=== PATIENT | female | born 1960 | race Caucasian/White ===

== ENCOUNTER 2024-06-07 09:57 | Outpatient (CLI) | payer BC, SELFPAY ==
--- NOTE | 2024-06-07 10:15 | CRLHL7_ITS ---
For Patients: As a result of the Century Cures Act, medical imaging exams and procedure reports are released immediately into your electronic medical record. You may view this report before your referring provider. If you have questions, please contact your health care provider. Indication: Stenosis. Technique: Multiplanar, multisequence MRI of the lumbar spine was performed without intravenous contrast. Comparison: Lumbar spine radiographs 06/03/2024. Findings: There are 5 lumbar type vertebral segments identified. The vertebral body heights are maintained without evidence of fracture. There is no discrete T1 hypointense marrow infiltrating process. Susceptibility artifact within the posterior paraspinal soft tissues related to spinal cord stimulator generator. The conus medullaris terminates at L1, normal. Cauda equina appears unremarkable. T12-L1: No spinal canal or neural foraminal stenosis. L1-2: No spinal canal or neural foraminal stenosis. L2-3: Disc degeneration. Disc bulge combined with facet arthropathy resulting in mild spinal canal narrowing. Mild neural foraminal narrowing. Moderate facet arthropathy. L3-4: Disc degeneration. Disc bulge combined with facet arthropathy resulting in moderate left lateral recess narrowing with mild overall spinal canal narrowing. Encroachment upon the descending left L4 nerves. Mild to moderate left and mild right neural foraminal narrowing. L4-5: Disc degeneration. Disc bulge with shallow right subarticular disc protrusion which abuts the descending right L5 nerves. Mild overall spinal canal narrowing. Moderate left and mild right neural foraminal narrowing secondary to disc bulge and facet arthropathy. L5-S1: Disc degeneration. Minimal spinal canal narrowing. Moderate left and mild right neural foraminal narrowing. Moderate facet arthropathy. Mild sacroiliac joint osteoarthritis. Small right renal cyst. Impression: 1. At L3-4, moderate left lateral recess narrowing with encroachment upon the descending left L4 nerves. Mild to moderate left neural foraminal narrowing. 2. At L4-5, shallow right subarticular disc protrusion encroaches upon the descending right L5 nerves. Moderate left neural foraminal narrowing. 3. At L5-S1, moderate left neural foraminal narrowing. 4. [id number] multilevel facet arthropathy. Dictated by Kennedy Sexton MD @ 06/10/2024 11:37:33 AM (Electronically Signed)
== END 2024-06-07 09:58 | disposition home or self-care (01) ==
LOC: MRI 10:01
PROVIDERS: PCP Family Medicine; Visit Provider Orthopaedic Surgery Orthopaedic Surgery of the Spine
DX: M48.062 Spinal stenosis, lumbar region with neurogenic claudication (principal); M51.26 Other intervertebral disc displacement, lumbar region; M51.27 Other intervertebral disc displacement, lumbosacral region
CPT/HCPCS: 72148

== ENCOUNTER 2024-06-18 09:27 | Outpatient (CLI) | payer BC, SELFPAY | END 2024-06-18 09:28 | disposition home or self-care (01) | LOC: INJ CL 09:27 | PROVIDERS: PCP Family Medicine; Visit Provider Family Medicine | DX: M54.16 Radiculopathy, lumbar region (principal); M51.369 Other intervertebral disc degeneration, lumbar region without mention of lumbar back pain or lower extremity pain | CPT/HCPCS: 64483; J1100; Q9966 ==

== ENCOUNTER 2024-10-17 07:01 | Outpatient (CLI) | payer BC, SELFPAY ==
--- NOTE | 2024-10-17 07:15 | CRLHL7_ITS ---
For Patients: As a result of the Century Cures Act, medical imaging exams and procedure reports are released immediately into your electronic medical record. You may view this report before your referring provider. If you have questions, please contact your health care provider. INDICATION: Fatigue, chronic. TECHNIQUE: Multisequence multiplanar MRI of the brain prior to and following administration of 20 cc Dotarem gadolinium-based intravenous contrast. Multiple sclerosis protocol was utilized. COMPARISON: None available. FINDINGS: No evidence of acute ischemia. Normal signal intensity in the brain parenchyma. No focus of abnormal enhancement. The ventricles are normal in size. Flow voids of the larger intracranial arteries are preserved. Normal calvarial bone marrow signal intensity. Symmetric globes. Mild scattered paranasal sinus mucosal thickening. IMPRESSION: 1. Unremarkable contrast-enhanced MRI of the brain. 2. Mild scattered paranasal sinus mucosal thickening. Dictated by Zain Menard MD @ 10/18/2024 9:09:04 AM (Electronically Signed)
== END 2024-10-17 07:02 | disposition home or self-care (01) ==
LOC: MRI 07:02
PROVIDERS: PCP Family Medicine; Visit Provider Psychiatry & Neurology Neurology
DX: R53.83 Other fatigue (principal); R53.1 Weakness; E11.40 Type 2 diabetes mellitus with diabetic neuropathy, unspecified; M79.7 Fibromyalgia
CPT/HCPCS: 70553; A9575

== ENCOUNTER 2025-04-23 08:17 | Outpatient (CLI) | payer BC, SELFPAY ==
--- NOTE | 2025-04-23 08:30 | CRLHL7_ITS ---
For Patients: As a result of the Cures Act, medical imaging exams and procedure reports are released immediately into your electronic medical record. You may view this report before your referring provider. If you have questions, please contact your health care provider. Indication: Post laminectomy syndrome, pain Technique: Cervical spine five views including bilateral obliques IMPRESSION: Cannulated screw fixation hardware in C2. ACDF hardware C5-6. Bridging osteophyte C4-5 and near-complete bridging osteophytes C3-4. Solid osseous fusion C6-7. No fracture. Anterior bridging osteophyte formation at C7-T1. Prevertebral soft tissues normal. Chronic soft tissue density posteriorly. Incidental nodular density in the right upper lobe. Dictated by Lucas Chan MD @ 04/23/2025 9:24:30 AM (Electronically Signed)
== END 2025-04-23 08:18 | disposition home or self-care (01) ==
LOC: RAD 08:18
PROVIDERS: PCP Family Medicine; Visit Provider Pain Medicine Interventional Pain Medicine
DX: M96.1 Postlaminectomy syndrome, not elsewhere classified (principal)
CPT/HCPCS: 72050